=== PATIENT | female | born 1945 | race Caucasian/White ===

== ENCOUNTER → 2017-03-08 | Outpatient (CLI) | payer MEDICARE, OTHER ==
[~2017-03-08] MED LIST: ADAL10SY SC; ALLEGRA PO; AMLO10TA2 PO; BIOCLEANSE PO; BUSP10TA PO; LACT1CAP37 PO; LOSA100T6 PO; TRAM50TA2 PO
[2017-03-08 13:32] LABS: ASPARTATE AMINO TRANSFERASE 19 U/L (15-37); BLOOD UREA NITROGEN 17 mg/dL (7-18)
== END | disposition home or self-care (01) ==
LOC: STAR 12:04
PROVIDERS: ATTEND Orthopaedic Surgery
DX: Z01.818 Encounter for other preprocedural examination (principal); M17.11 Unilateral primary osteoarthritis, right knee
CPT/HCPCS: 36415; 80053; 81003; 85025; 87081

== ENCOUNTER 2017-03-18 09:30 | Inpatient (IN) | payer MEDICARE, OTHER ==
[2017-03-08 12:25] VITALS: BP 136/79
[~2017-03-18] VITALS: Ht 162.6 cm; Wt 83.4 kg
[2017-03-18] MEDS ORDERED: VANCOMYCIN PER PHARMACY MC STA (10:01)
[2017-03-18] MEDS ORDERED: SCOPOLAMINE PATCH, 1.5MG PATCH.TD72 TD STA (10:01)
[2017-03-18] MEDS ORDERED: GABA600T2 PO (10:15)
[2017-03-18] MEDS ORDERED: VANCOMYCIN 1,500 MG in SODIUM CHLORIDE 0.9% 250 ML IV ONE (10:30)
[2017-03-18] MEDS ORDERED: LACTATED RINGERS 1,000 ML IV SCH (10:43)
[2017-03-18] MEDS ORDERED: MIDAZOLAM 1 MG/ML, 2ML ONE (14:44)
[2017-03-18] MEDS ORDERED: FENTANYL PF 250 MCG/5ML ONE (14:44)
[2017-03-18] MEDS ORDERED: ROPIvacaine/PF 0.2%, 20 ML ONE ×2 (15:20→16:04)
[2017-03-18] MEDS ORDERED: PROPOFOL 10 MG/ML, 20ML ONE (16:04)
[2017-03-18] MEDS ORDERED: VANCOMYCIN 1,000 MG ONE (16:04)
[2017-03-18] MEDS ORDERED: ONDANSETRON 2MG/ML, 2ML ONE (16:04)
[2017-03-18] MEDS ORDERED: CEFAZOLIN 1,000 MG ONE (16:04)
[2017-03-18] MEDS ORDERED: KETOROLAC 60 MG/2 ML ONE (16:04)
[2017-03-18] MEDS ORDERED: DEXAMETHASONE 4 MG/ML, 1ML ONE (16:04)
[2017-03-18] MEDS ORDERED: TRANEXAMIC ACID 100 MG/ML, 10ML ONE (16:05)
[2017-03-18] MEDS ORDERED: SODIUM CHLORIDE 0.9% 50 ML ONE (16:05)
[2017-03-18] MEDS ORDERED: EPINEPHRINE 1 MG/ML, 1ML ONE (16:05)
[2017-03-18] MEDS ORDERED: ACETAMINOPHEN 325 MG TABLET PO PRN (17:30)
[2017-03-18] MEDS ORDERED: EPHEDRINE 50 MG/ML, 1ML IVPush PRN (17:30)
[2017-03-18] MEDS ORDERED: ALBUTEROL SULFATE 2.5 MG/3 ML NPPB PRN (17:30)
[2017-03-18] MEDS ORDERED: ONDANSETRON 2MG/ML, 2ML IVPush PRN (17:30)
[2017-03-18] MEDS ORDERED: METOPROLOL 1 MG/ML, 5ML IV PRN (17:30)
[2017-03-18] MEDS ORDERED: FENTANYL PF 100 MCG/2ML IV PRN (17:30)
[2017-03-18] MEDS ORDERED: MIDAZOLAM 1 MG/ML, 2ML IV PRN (17:30)
[2017-03-18] MEDS ORDERED: LABETALOL 5MG/ML, 20ML IV PRN (17:30)
[2017-03-18] MEDS ORDERED: MEPERIDINE/PF 25MG/0.5ML IVPush PRN (17:30)
[2017-03-18] MEDS ORDERED: OXYcodone 5 MG/5 ML ORAL.SOL UDC PO PRN (17:30)
[2017-03-18] MEDS ORDERED: hydrALAzine 20 MG/ML, 1ML IV PRN (17:30)
[2017-03-18] MEDS ORDERED: PROMETHAZINE 25 MG/ML, 1ML IV PRN (17:30)
[2017-03-18] MEDS ORDERED: MEPERIDINE/PF 25MG/0.5ML ONE (18:40)
[2017-03-18] MEDS ORDERED: ACETAMINOPHEN 650 MG/20.3 ML UDC ONE (18:55)
[2017-03-18] MEDS ORDERED: OXYcodone 5 MG/5 ML ORAL.SOL UDC ONE (18:55)
[2017-03-18] MEDS ORDERED: ONDANSETRON 2MG/ML, 2ML IV PRN (19:00)
[2017-03-18] MEDS ORDERED: ALUMINUM/MAG/SIMETHICONE 30 ML UDC PO PRN (19:00)
[2017-03-18] MEDS ORDERED: ACETAMINOPHEN 650 MG/20.3 ML UDC PO PRN (19:00)
[2017-03-18] MEDS ORDERED: SENNA/DOCUSATE TABLET PO PRN (19:00)
[2017-03-18] MEDS ORDERED: BISACODYL 10 MG SUPP PR PRN (19:00)
[2017-03-18] MEDS ORDERED: CEFAZOLIN PMX 1GM/50ML 50 ML IVPB SCH (19:00)
[2017-03-18] MEDS ORDERED: MAGNESIUM HYDROXIDE 8%, 30ML UDC PO PRN (19:00)
[2017-03-18] MEDS: HYDROmorphone 1 MG/ML, 1ML IV PRN ×2 (19:30→19:35)
[2017-03-18] MEDS ORDERED: HYDROmorphone 2 MG/ML, 1ML ONE (19:34)
[2017-03-18 20:46] VITALS: BP 127/61
[2017-03-18] MEDS: HYDROcodone/APAP 5/325 TABLET PO PRN (21:06)
[2017-03-18] MEDS: DOCUSATE 100 MG CAPSULE PO SCH (21:07)
[2017-03-18] MEDS: CEFAZOLIN PMX 1GM/50ML 50 ML IVPB SCH (23:36)
[2017-03-19 00:30] VITALS: BP 125/67
[2017-03-19] MEDS: HYDROcodone/APAP 5/325 TABLET PO PRN ×3 (00:54→09:19)
[2017-03-19] MEDS: D5%-0.45NACL+KCL 20MEQ 1,000 ML IV SCH ×2 (03:25→10:12)
[2017-03-19 03:42] VITALS: BP 108/58
[2017-03-19] MEDS ORDERED: ASPIRIN 325 MG TABLET EC PO SCH (06:00)
[2017-03-19 07:05] VITALS: BP 101/59
[2017-03-19] MEDS: CEFAZOLIN PMX 1GM/50ML 50 ML IVPB SCH (08:18)
[2017-03-19] MEDS ORDERED: LOSARTAN 50MG TABLET PO SCH (09:00)
[2017-03-19] MEDS ORDERED: AMLODIPINE 5 MG TABLET PO SCH (09:00)
[2017-03-19] MEDS ORDERED: LORATADINE 10 MG TABLET PO SCH (09:00)
[2017-03-19] MEDS: DOCUSATE 100 MG CAPSULE PO SCH (10:17)
[2017-03-19] MEDS: morphine SULFATE 10 MG/ML, 1ML IV PRN ×2 (11:00→11:34)
[2017-03-19 11:40] VITALS: BP 121/70
[2017-03-19] MEDS ORDERED: HYDR-3240 PO (12:49)
[2017-03-19] MEDS ORDERED: DOCU-30 PO (12:50)
[2017-03-19] MEDS ORDERED: ASPI-650 PO (12:51)
== END 2017-03-19 13:20 | disposition home or self-care (01) | DRG 470 ==
LOC: ORIP 09:36 → 4NOR 20:35 → DCLOUNGE 03-19 12:30
PROVIDERS: ADMIT Orthopaedic Surgery; ATTEND Orthopaedic Surgery
PROC: 0SRC0J9 Replacement of Right Knee Joint with Synthetic Substitute, Cemented, Open Approach (ICD-10-PCS; principal; 2017-03-18 13:00)
DX: M17.11 Unilateral primary osteoarthritis, right knee (principal); I10 Essential (primary) hypertension; L40.50 Arthropathic psoriasis, unspecified; M85.80 Other specified disorders of bone density and structure, unspecified site; Z96.651 Presence of right artificial knee joint
CPT/HCPCS: 36415; 85014; 93005; C1713; J0171; J0690; J1100; J1170; J1885; J2175; J2250; J2405; J2704; J2795; J3010; J3370; C1776; J2270; J3480; J7050; J7120